=== PATIENT | female | born 1985 | race African-American/Black ===

== ENCOUNTER 2016-11-08 14:43 | Emergency (ER) | payer SELFPAY ==
[~2016-11-08] VITALS: Ht 158.8 cm; Wt 63.5 kg
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
[2016-11-08] MEDS ORDERED: LIDOCAINE/EPI/TETRACAINE TOPICAL GEL 3 ML. TP ONE (15:15)
[2016-11-08] MEDS ORDERED: LIDOCAINE 1% PF 2 ML VIAL. INJ ONE (15:30)
[2016-11-08 16:30] VITALS: BP 157/99
== END 2016-11-08 16:32 | disposition home or self-care (01) ==
LOC: ER 14:43
DX: S01.81XA Laceration without foreign body of other part of head, initial encounter (principal); S00.12XA Contusion of left eyelid and periocular area, initial encounter; S00.11XA Contusion of right eyelid and periocular area, initial encounter; S50.02XA Contusion of left elbow, initial encounter; S80.01XA Contusion of right knee, initial encounter; F12.10 Cannabis abuse, uncomplicated; H57.8 Other specified disorders of eye and adnexa; Z88.8 Allergy status to other drugs, medicaments and biological substances; Y04.0XXA Assault by unarmed brawl or fight, initial encounter; Y93.89 Activity, other specified; Y92.89 Other specified places as the place of occurrence of the external cause; Y99.8 Other external cause status
CPT/HCPCS: 12014; 99283-25